=== PATIENT | female | born 1945 | race Caucasian/White ===

== ENCOUNTER → 2018-08-18 11:06 | Outpatient (CLI) | payer MEDICARE, MEDICAID, SELFPAY ==
--- NOTE | 2018-08-18 | DI.RAD.S_ITS ---
PROCEDURE: XR SHOULDER LT MIN 2V INDICATIONS: Pain in left shoulder TECHNIQUE: 3 views of the shoulder were acquired. COMPARISON: None. FINDINGS: Bones: No fractures or dislocations. No suspicious bony lesions. Visualized ribs appear intact. Mild AC joint degeneration with spurring. Soft tissues: No suspicious soft tissue calcifications. IMPRESSION: Mild left shoulder joint degeneration. Dictated by: Urbano Conley M.D. on 08/18/2018 at 13:07 Approved by: Urbano Conley M.D. on 08/18/2018 at 13:10
== END ==
PROVIDERS: PCP Family Medicine; Visit Provider Family Medicine
DX: M25.512 Pain in left shoulder (principal); M19.012 Primary osteoarthritis, left shoulder; G89.29 Other chronic pain
CPT/HCPCS: 73030; 99214

== ENCOUNTER → 2018-10-12 14:30 | Outpatient (CLI) | payer MEDICARE, MEDICAID, SELFPAY ==
--- NOTE | 2018-10-12 | DI.US.S_ITS ---
LIMITED ULTRASOUND OF LEFT BREAST: 10/12/2018 CLINICAL: Follow up from addtional views. Comparison is made to exams dated: 10/12/2018 mammogram - [facility], 07/26/2018 mammogram, and 08/13/2011 mammogram - [facility]. Real-time ultrasound of the left breast 8-11 o'clock region was performed on the area of interest. IMPRESSION: NEGATIVE There is no sonographic evidence of malignancy. There is no abnormality seen in the left breast to correspond with the mammography finding. A 1 year screening mammogram is recommended. This exam was interpreted at Station ID: [id number]. Electronically Signed By: Kd adam/nnamdi:10/12/2018 16:40:05 letter sent: Normal Exam Ultrasound BI-RADS: 1 Negative
--- NOTE | 2018-10-12 | DI.MG.S_ITS ---
UNILATERAL LEFT DIGITAL DIAGNOSTIC MAMMOGRAM 3D/2D WITH ADDITIONAL VIEWS: 10/12/2018 CLINICAL: Additional evaluation requested from prior study. Comparison is made to exams dated: 08/11/2010 mammogram - [facility], 08/11/2010 [facility], 07/26/2018 mammogram, and 08/13/2011 mammogram - [facility]. There are scattered fibroglandular elements in left breast. There is an oval low density asymmetry with an indistinct margin in the left breast at 11 o'clock anterior depth. This is less prominent. No other significant masses or calcifications are seen in the breast. IMPRESSION: INCOMPLETE: NEEDS ADDITIONAL IMAGING EVALUATION The oval low density asymmetry in the left breast is indeterminate. An ultrasound is recommended. This exam was interpreted at Station ID: [id number]. NOTE: For mammograms, a report in lay terms will be sent to the patient. Approximately 15% of breast malignancies will not be visualized mammographically. In the management of a palpable breast mass, a negative mammogram must not discourage biopsy of a clinically suspicious lesion. Electronically Signed By: Kd adam/nnamdi:10/12/2018 15:21:00 letter sent: Need Ultrasound ACR BI-RADS Category 0: Incomplete [id number]
== END ==
PROVIDERS: Family Provider Family Medicine; PCP Family Medicine; Visit Provider Family Medicine
DX: R92.8 Other abnormal and inconclusive findings on diagnostic imaging of breast (principal); N64.89 Other specified disorders of breast
CPT/HCPCS: 76642; 77065; G0279

== ENCOUNTER → 2021-12-22 08:22 | Outpatient (CLI) | payer MEDICARE, MEDICAID, SELFPAY ==
[2021-12-22 20:26] LABS: COVID19 - ORCAS (NP or Nasal) Negative (Negative)
== END ==
PROVIDERS: Family Provider Family Medicine; PCP Family Medicine; Visit Provider Physician Assistant
DX: Z20.822 Contact with and (suspected) exposure to COVID-19 (principal); J06.9 Acute upper respiratory infection, unspecified
CPT/HCPCS: U0003

== ENCOUNTER → 2023-01-27 10:43 | Outpatient (CLI) | payer MEDICARE, MEDICAID, SELFPAY ==
--- NOTE | 2023-01-27 10:45 | DI.US.S_ITS ---
PROCEDURE: US ABDOMEN LIMITED INDICATIONS: ABDOMINAL PAIN TECHNIQUE: Real-time focused scanning was performed of the abdomen, with image documentation. COMPARISON: [facility] ([place]), CR, XR ABDOMEN 1V, 12/02/2022, 14:19. FINDINGS: Visualized pancreas is unremarkable sonographically. Liver length of 14.9 cm. Unremarkable hepatic echotexture. Prior cholecystectomy. No biliary ductal dilation demonstrated, extrahepatic bile duct measures 5 mm. Main portal vein is patent with antegrade flow. IMPRESSION: 1. Prior cholecystectomy. 2. No biliary ductal dilation demonstrated. Dictated by: Mehdi Hadley M.D. on 01/27/2023 at 15:20 Approved by: Mehdi Hadley M.D. on 01/27/2023 at 15:22
== END ==
PROVIDERS: Family Provider Family Medicine; PCP Family Medicine; Referring Provider Internal Medicine Gastroenterology; Visit Provider Internal Medicine Gastroenterology
DX: R10.9 Unspecified abdominal pain (principal); Z90.49 Acquired absence of other specified parts of digestive tract
CPT/HCPCS: 76705

== ENCOUNTER 2023-02-24 12:58 | Day surgery (SDC) | payer MEDICARE, MEDICAID, SELFPAY ==
[2023-02-24 13:45] VITALS: BMI 27.0
[2023-02-24 13:56] VITALS: BP 109/72; PULSE 78; RESP 21; TEMP 36.4; O2SAT 100
[2023-02-24] MEDS: LACTATED RINGERS 1,000 ML 42 ML IV (14:00)
--- NOTE | 2023-02-24 14:15 | PM.HP.1 ---
History of Present Illness History of Present Illness Date Patient Seen: 02/24/23 Chief complaint: SDC Narrative: Change in bowel movements and abdominal pain, screening [facility] Medical History Central sleep apnea Flat feet Herpes Musculoskeletal problem Obstructive sleep apnea of adult Primary insomnia PTSD (post-traumatic stress disorder) Surgical History History of section History of tonsillectomy Family History Father Cancer Mother History of heart disease Brother Stroke Social History (Updated 03/08/19 @ 19:06 by YANCY Woodson) marital status: unmarried,single details: lives in [facility] number of children: 1 household members: none lives independently: Yes caregiver/support person: No housing: house pets and animals: Yes (dog) education level: college Previous occupational history: self-employed artist Smoking Status: Former smoker Tobacco: How many years used: 1 alcohol intake: never substance use type: does not use Meds Home Medications and Allergies Home Medications Medication Instructions Recorded Confirmed Type lorazepam 1 mg tablet 5 mg PO BID-TID PRN Anxiety 08/18/18 02/24/23 History Allergies Allergy/AdvReac Type Severity Reaction Status Date / Time gentamicin AdvReac Verified 10/09/22 10:44 Penicillins AdvReac Verified 10/09/22 10:44 shellfish derived AdvReac Verified 10/09/22 10:44 Sulfa (Sulfonamide AdvReac Verified 10/09/22 10:44 Antibiotics) Exam Vital Signs (past 8 hours): - 02/24/23 13:56 Temperature 97.6 F Pulse Rate 78 Respiratory Rate 21 Blood Pressure 109/72 Pulse Oximetry 100 Oxygen Delivery Method Room Air Oxygen Delivery Method Room Air Narrative Exam Narrative: Oropharynx free of lesions Chest clear to auscultation percussion Cardiac exam reveals no S3 or murmur Assessment & Plan Assessment & Plan narrative: Abnormal bowel movements and need for screening risks, benefits, alternatives have been explained.
--- NOTE | 2023-02-24 14:24 | PM.OP.COLON ---
Operative Date/Time/Diagnoses Date of procedure: 02/24/23 Pre-op diagnosis: See indication and findings Procedure & Clinicians Study performed: Colonoscopy Indications: Screening and new onset constipation Procedure Notes Procedure in detail: After informed consent was obtained the patient was placed in left lateral decubitus position. The video colonoscope was introduced the rectum slowly advanced cecum. Preparation was good. On slow withdrawal mucosa was carefully examined. The scope was removed. The patient tolerated procedure well. Blood loss none Complications none Sedation mac Findings 1. Tortuous colon noted but no pathology. This will be Briana's only colonoscopy. She finds she has had good results from using senna and can not continued the use that on a daily basis intermittently. She will call for any additional problems.
[2023-02-24 14:43] VITALS: BP 87/52; PULSE 68; RESP 16; TEMP 36.2; O2SAT 92
[2023-02-24 14:47] VITALS: BP 94/56; PULSE 69; RESP 17; O2SAT 93
[2023-02-24 14:53] VITALS: BP 93/58; PULSE 64; RESP 12; O2SAT 98
[2023-02-24 14:55] VITALS: BP 101/57; PULSE 61; RESP 15; TEMP 37; O2SAT 98
== END 2023-02-24 15:25 | disposition home or self-care (01) ==
PROVIDERS: Family Provider Family Medicine; PCP Family Medicine; Referring Provider Internal Medicine Gastroenterology; Visit Provider Internal Medicine Gastroenterology
PROC: 0DJD8ZZ Inspection of Lower Intestinal Tract, Via Natural or Artificial Opening Endoscopic (ICD-10-PCS; CPT 45378; principal; 2023-02-24 14:00)
DX: R19.4 Change in bowel habit (principal); R10.9 Unspecified abdominal pain; Z80.0 Family history of malignant neoplasm of digestive organs; R14.0 Abdominal distension (gaseous)
CPT/HCPCS: 45378; J2704